=== PATIENT | female | born 1970 | race Caucasian/White ===

== ENCOUNTER → 2017-10-25 | Outpatient (CLI) | payer OTHER ==
[~2017-10-25] MED LIST: ACE3 PO; ASPI81TA94 PO; CEFU500T50 PO; CLIN-75 PO; CLIN300C99 PO; HYDR-4309 PO; IBU800 PO; LOR5 PO; MET2 PO; METF-410 PO; METO25TA23 PO; MULT-885 PO; NIFS30 PO; OLO2ODPT OU; OMEG-11 PO; OMEG500C5 PO; OXYC-865 PO; PER PO; PNEU0.5D3 IM; PRE10 PO; SUMA50TA34 PO; TOBR5DRO43 OD; WARF-1 PO; WARF-20 PO; WARF10TA28 PO
[2017-10-25 10:12] LABS: INR 2.75
== END ==
LOC: LAB 09:41
PROVIDERS: ATTEND Nurse Practitioner Family
DX: Z51.81 Encounter for therapeutic drug level monitoring (principal); Z79.01 Long term (current) use of anticoagulants; Z95.2 Presence of prosthetic heart valve
CPT/HCPCS: 36415; 85610

== ENCOUNTER → 2017-12-01 | Outpatient (CLI) | payer OTHER ==
[2017-12-01 14:25] LABS: INR 2.7
== END ==
LOC: LAB 14:06
PROVIDERS: ATTEND Nurse Practitioner Family
DX: Z51.81 Encounter for therapeutic drug level monitoring (principal); Z79.01 Long term (current) use of anticoagulants
CPT/HCPCS: 36415; 85610

== ENCOUNTER → 2018-01-10 | Outpatient (CLI) | payer OTHER ==
[2018-01-10 16:54] LABS: INR 2.73
== END ==
LOC: LAB 15:35
PROVIDERS: ATTEND Internal Medicine
DX: Z51.81 Encounter for therapeutic drug level monitoring (principal); Z79.01 Long term (current) use of anticoagulants; Z95.2 Presence of prosthetic heart valve
CPT/HCPCS: 36415; 85610

== ENCOUNTER 2018-01-13 15:06 | Emergency (ER) | payer OTHER ==
--- NOTE | 2018-01-13 15:14 | ER Report ---
History and Physical Time Seen By MD: 15:14 HPI/ROS CHIEF COMPLAINT: Chest pain HISTORY OF PRESENT ILLNESS: This is a 47-year-old female presents to the emergency department for left-sided chest pain. Patient states that over the last 2 weeks she's had intermittent left-sided chest pain, pinpoint around the 2nd and 3rd intercostal space. Patient denies recent trauma does state however that the pain does radiate up into her neck and left shoulder and across her back at times. Patient does state that a week ago they were shoveling some gravel and the pain seems to have increased since then. Patient states that today the pain on the left side of the chest seemed to intensify and had some increased pressure in her chest. She denies nausea, vomiting, diarrhea, aches, chills, headaches. Patient also has had an aortic valve replacement. Had a recent INR check which was 2.7. REVIEW OF SYSTEMS: Constitutional: No fever, no chills. Eyes: No discharge. ENT: No sore throat. Cardiovascular: As above. Respiratory: As above. Gastrointestinal: No abdominal pain, no vomiting. Genitourinary: No hematuria. Musculoskeletal: No back pain. Skin: No rashes. Neurological: No headache. Allergies: Coded Allergies: codeine (Verified Allergy, Intermediate, HIVES, 04/30/15) Can take Hydrocodone without a problem Uncoded Allergies: generic warfarin (Allergy, Unknown, 04/30/15) INR levels drop Home Meds Active Scripts Metoprolol Succinate (METOPROLOL SUCCINATE) 25 Mg Tab.er.24h, 12.5 MG PO DAILY, #45 TAB 2 Refills Prov:LASHAUN KRAUSE APRN-Amadou 08/07/17 Metformin Hcl (METFORMIN HCL) 500 Mg Tablet, 1 TAB PO BID, #180 TAB 1 Refill Prov:LASHAUN KRAUSE APRN-C 06/29/17 Warfarin Sodium (JANTOVEN) 5 Mg Tablet, 1-2 TAB PO DAILY, #102 TAB 3 Refills Take 1 tab daily except Mondays take 2 tabs Prov:LASHAUN KRAUSE APRN-C 06/29/17 Sumatriptan Succinate (IMITREX) 50 Mg Tablet, 1 TAB PO DAILY Y for HEADACHE, # 10 TAB 1 Refill If no effect after 2 hours may take a second tablet - do not exceed 2 tabs in 24 hours Prov:LAURENLASHAUN LEWIS FRANKLIN MOLD DESIGN ENGINEER-C 11/25/15 Pneumoc 13-Yane Conj-Dip Crm/Pf (PREVNAR 13 SYRINGE) 0.5 Ml Disp.syrin, 0.5 ML IM ONCE, #1 SYR 0 Refills Prov:LAURENDarellTIALASHAUN APRN MOLD DESIGN ENGINEER-C 04/30/15 Discontinued Reported Medications Multivitamin (DAILY VITAMIN) 1 Each Tablet, 1 EACH PO DAILY 03/21/13 [place]-3 Fatty Acids (FISH OIL) 500 Mg Capsule.dr, 500 MG PO 03/21/13 Discontinued Scripts Olopatadine (PATADAY) 0.05 Ml Soln, 1 GTT OU DAILY for 30 Days, #1 BOTTLE 5 Refills Prov:LAURENDarellTIALASHAUN APRNP-C 03/01/17 Past Medical/Surgical History Patient has a past medical surgical history of migraines, aortic valve replacement,, disease, wears glasses, borderline diabetic, cholecystectomy, tubal ligation. Reviewed Nurses Notes: Yes Hx Smoking: No Smoking Status: Former Smoker Exposure to Second Hand Smoke?: Yes Hx Substance Use Disorder: No Hx Alcohol Use: No Constitutional Vital Sign - Last 24 Hours 01/13/18 01/13/18 01/13/18 01/13/18 15:11 15:13 15:19 15:21 Pulse 80 80 Resp 16 31 B/P (MAP) 154/80 (104) 154/80 140/93 (109) Pulse Ox 96 96 O2 Delivery Room Air 01/13/18 01/13/18 01/13/18 01/13/18 15:36 15:51 16:03 16:06 Pulse 80 ??? 75 Resp 23 14 20 B/P (MAP) 128/91 (103) Pulse Ox 96 96 95 01/13/18 01/13/18 01/13/18 01/13/18 16:21 16:30 16:36 16:51 Pulse ? B/P (MAP) ???/??? (5033) 01/13/18 01/13/18 01/13/18 01/13/18 17:00 17:05 17:08 17:20 Pulse ??? 72 Resp 18 B/P (MAP) ???/??? (5785) 130/98 (109) Pulse Ox 95 01/13/18 01/13/18 01/13/18 01/13/18 17:30 17:35 17:50 18:01 Pulse 73 72 Resp 25 16 B/P (MAP) 134/94 (107) 137/92 (107) Pulse Ox 97 95 01/13/18 01/13/18 01/13/18 01/13/18 18:05 18:20 18:30 18:35 Pulse 67 69 ??? Resp 27 17 34 B/P (MAP) 125/96 (106) Pulse Ox 97 97 99 01/13/18 01/13/18 01/13/18 18:50 19:00 20:29 Pulse ??? 85 Resp 16 B/P (MAP) ???/??? (1665) 132/97 (109) Pulse Ox 92 O2 Delivery Room Air Physical Exam General Appearance: The patient is alert, has no immediate need for airway protection and no signs of toxicity. Eyes: Pupils equal and round no pallor or injection. ENT, Mouth: Mucous membranes are moist. Respiratory: There are no retractions, lungs are clear to auscultation. Cardiovascular: Regular rate and rhythm, systolic murmur, there is a mechanical click, no rubs. Gastrointestinal: Abdomen is soft and non tender, no masses, bowel sounds normal. Neurological: Alert and oriented 4. Moving all extremities. Following all commands. No focal neuro deficits. Skin: Warm and dry, no rashes. Musculoskeletal: Neck is supple non tender. Reproducible chest pain to the left anterior chest, around the 2nd and 3rd intercostal space with palpation, no crepitus or deformities noted. The muscles around the left shoulder and scapula are very tight. Extremities are nontender, nonswollen and have full range of motion. DIFFERENTIAL DIAGNOSIS: After history and physical exam differential diagnosis was considered for chest pain including but not limited to myocardial ischemia, pericarditis pulmonary embolus, chest wall pain, thoracic aneurysm, pleural inflammation and pulmonary infectious causes. Medical Decision Making Data Points Result Diagram: 01/13/18 1603 01/13/18 1541 Laboratory Hematology Test 01/13/18 15:41 01/13/18 16:00 01/13/18 16:03 01/13/18 19:29 Prothrombin Time 23.7 seconds (12.0-14.4) Prothromb Time International Ratio 2.05 Activated Partial Thromboplast Time 33 seconds (23-35) Sodium Level 140 mmol/L (137-145) Potassium Level 3.6 mmol/L (3.5-5.0) Chloride Level 105 mmol/L (98-107) Carbon Dioxide Level 20 mmol/L (22-31) Blood Urea Nitrogen 10 mg/dl (7-18) Creatinine 0.60 mg/dl (0.52-1.04) Glomerular Filtration Rate Calc > 60.0 Random Glucose 89 mg/dl (75-110) Calcium Level 9.0 mg/dl (8.4-10.2) Total Bilirubin 0.4 mg/dl (0.2-1.3) Aspartate Amino Transf (AST/SGOT) 19 U/L (0-35) Alanine Aminotransferase (ALT/SGPT) 27 U/L (0-56) Alkaline Phosphatase 79 U/L (0-126) Total Protein 7.0 gm/dl (6.3-8.2) Albumin 4.0 g/dl (3.5-5.0) D-Dimer Quantitative (PE/DVT) < 0.27 ug/ml (0-0.50) Red Blood Count 4.81 M/uL (4.17-5.56) Mean Corpuscular Volume 85.0 fL (80.0-96.0) Mean Corpuscular Hemoglobin 29.0 pg (26.0-33.0) Mean Corpuscular Hemoglobin Concent 34.2 g/dL (32.0-36.0) Red Cell Distribution Width 15.1 % (11.5-14.5) Mean Platelet Volume 9.2 fL (7.2-11.1) Neutrophils (%) (Auto) 62.3 % (39.4-72.5) Lymphocytes (%) (Auto) 31.4 % (17.6-49.6) Monocytes (%) (Auto) 4.1 % (4.1-12.4) Eosinophils (%) (Auto) 1.5 % (0.4-6.7) Basophils (%) (Auto) 0.7 % (0.3-1.4) Nucleated RBC Relative Count (auto) 0.0 /100WBC Neutrophils # (Auto) 7.0 K/uL (2.0-7.4) Lymphocytes # (Auto) 3.5 K/uL (1.3-3.6) Monocytes # (Auto) 0.5 K/uL (0.3-1.0) Eosinophils # (Auto) 0.2 K/uL (0.0-0.5) Basophils # (Auto) 0.1 K/uL (0.0-0.1) Nucleated RBC Absolute Count (auto) 0.00 K/uL Troponin I < 0.012 ng/ml Chemistry Test 01/13/18 15:41 01/13/18 16:00 01/13/18 16:03 01/13/18 19:29 Prothrombin Time 23.7 seconds (12.0-14.4) Prothromb Time International Ratio 2.05 Activated Partial Thromboplast Time 33 seconds (23-35) Glomerular Filtration Rate Calc > 60.0 Calcium Level 9.0 mg/dl (8.4-10.2) Total Bilirubin 0.4 mg/dl (0.2-1.3) Aspartate Amino Transf (AST/SGOT) 19 U/L (0-35) Alanine Aminotransferase (ALT/SGPT) 27 U/L (0-56) Alkaline Phosphatase 79 U/L (0-126) Total Protein 7.0 gm/dl (6.3-8.2) Albumin 4.0 g/dl (3.5-5.0) D-Dimer Quantitative (PE/DVT) < 0.27 ug/ml (0-0.50) White Blood Count 11.3 k/uL (4.5-11.0) Red Blood Count 4.81 M/uL (4.17-5.56) Hemoglobin 14.0 g/dL (12.0-16.0) Hematocrit 40.9 % (34.0-47.0) Mean Corpuscular Volume 85.0 fL (80.0-96.0) Mean Corpuscular Hemoglobin 29.0 pg (26.0-33.0) Mean Corpuscular Hemoglobin Concent 34.2 g/dL (32.0-36.0) Red Cell Distribution Width 15.1 % (11.5-14.5) Platelet Count 160 K/uL (150-450) Mean Platelet Volume 9.2 fL (7.2-11.1) Neutrophils (%) (Auto) 62.3 % (39.4-72.5) Lymphocytes (%) (Auto) 31.4 % (17.6-49.6) Monocytes (%) (Auto) 4.1 % (4.1-12.4) Eosinophils (%) (Auto) 1.5 % (0.4-6.7) Basophils (%) (Auto) 0.7 % (0.3-1.4) Nucleated RBC Relative Count (auto) 0.0 /100WBC Neutrophils # (Auto) 7.0 K/uL (2.0-7.4) Lymphocytes # (Auto) 3.5 K/uL (1.3-3.6) Monocytes # (Auto) 0.5 K/uL (0.3-1.0) Eosinophils # (Auto) 0.2 K/uL (0.0-0.5) Basophils # (Auto) 0.1 K/uL (0.0-0.1) Nucleated RBC Absolute Count (auto) 0.00 K/uL Troponin I < 0.012 ng/ml Coagulation Test 01/13/18 15:41 01/13/18 16:00 Prothrombin Time 23.7 seconds Prothromb Time International Ratio 2.05 Activated Partial Thromboplast Time 33 seconds D-Dimer Quantitative (PE/DVT) < 0.27 ug/ml EKG/Imaging EKG Interpretation 12 lead EKG: Time of EKG 1509. Rhythm: Sinus rhythm, ventricular rate 77 bpm. [place]: normal QRS: normal ST segments: No ST depression or elevation identified. 12 lead EKG: Repeat EKG time 1736. Rhythm: Sinus rhythm, 67 bpm. [place]: normal QRS: normal ST segments: No ST depression or elevation identified. [place] [facility] [place] Naida Oswald : 1970 Visit/Account:[id number] Date of Sevice: 01/13/2018 CHEST PA AND LAT HISTORY: Chest pain COMPARISON: None FINDINGS: Cardiomediastinal contours: Median sternotomy and aortic valve replacement. Lungs and pleura: Normal Bones/soft tissues: Normal Other findings: Right upper quadrant surgical clips. IMPRESSION: 1. No acute cardiopulmonary disease. Report Dictated By: Vincent Tierney MD at 01/13/2018 4:30 PM Report E-Signed By: Vincent Tierney MD at 01/13/2018 4:31 PM WSN:[id number] ED Course/Re-evaluation Clinical Indication for ER IV: IV Access ED Course The patient was admitted to room. A history of physical were obtained. Differential diagnoses were considered. An IV was started. A CBC, CMP, troponin , PT and INR, and d-dimer. Lab studies are unremarkable. Negative troponin INR subtherapeutic at 2.05 down from her previous which was 2.7. Patient tells me that she takes her dose in the evening and has not taken at the time of the lab draw. Negative d-dimer. Two-view chest x-ray was negative for any acute cardiopulmonary process. EKG showing normal sinus rhythm. I did review these lab results with the patient and her family my suggestion was to repeat the troponin. Patient was in agreement with this the 2nd troponin was negative. Patient was given 1 g of Tylenol with some relief of the left anterior chest pain. Patient was also given 30 mg IV Norflex which helped with some the muscular pain that she was having. The pain was reproducible on the left anterior chest and with the negative cardiac workup I felt comfortable seeing the patient home. I did discuss with the patient following up with her primary care provider Joaquin Branch for an echocardiogram. 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 The patient was in agreement with this plan of care and discharged home. Encouraged to return to the ED for any other concerns or worsening symptoms. Decision to Disposition Date: Jan 13, 2018 Decision to Disposition Time: 20:26 Depart Departure Latest Vital Signs Vital Signs Date Time Temp Pulse Resp B/P (MAP) Pulse Ox O2 Delivery O2 Flow Rate FiO2 01/13/18 20:29 85 16 132/97 (109 92 Room Air Impression: Primary Impression: Chest pain Condition: Improved Disposition: HOME OR SELF-CARE Referrals: LASHAUN KRAUSE APRNP-C (PCP) Patient Instructions: Chest Pain (ED) Additional Instructions: Drink plenty of fluids. Get plenty of rest. Consider talking with Lashaun Branch for a repeat Echo. Follow-up with your primary care provider within 7 days for reevaluation. Continue with current medications. Return to the emergency department for any other concerns or worsening symptoms. Problem Qualifiers Primary Impression: Chest pain Chest pain type: intercostal pain Qualified Codes: R07.82 - Intercostal pain NIVIA SPENCE-RYLAN Jan 13, 2018 15:14
[2018-01-13] MEDS ORDERED: ASPIRIN 81 MG CHEW PO ONE (15:30)
--- NOTE | 2018-01-13 15:44 | EKG ---
FACILITY: [facility] PATIENT NAME: RICHARD LOPEZ : [id number] MR: [id number] V: [id number] EXAM DATE: ORDERING PHYSICIAN: NIVIA SPENCE TECHNOLOGIST: MAYTE Tinajero Reason : CP Blood Pressure : / mmHG Vent. Rate : 077 BPM Atrial Rate : 077 BPM P-R Int : 152 ms QRS Dur : 076 ms QT Int : 396 ms P-R-T Axes : 048 041 038 degrees QTc Int : 448 ms Normal sinus rhythm Low voltage QRS No ST-T abnormalities When compared with ECG of 22-MAR-2013 06:15, Relatively unchanged Confirmed by FLAKITO MEEHAN ([id number]) on 01/14/2018 1:58:43 PM Referred By: Confirmed By:FLAKITO MEEHAN
[2018-01-13 15:57] LABS: INR 2.05
[2018-01-13 16:09] LABS: PLATELET COUNT, AUTOMATED 160 K/uL (150-450)
--- NOTE | 2018-01-13 16:35 | RADIOLOGY IMAGING REPORT ---
FACILITY: [facility] [place] PATIENT NAME: Naida Oswald : 1970 MR: [id number] V: [id number] EXAM DATE: ORDERING PHYSICIAN: NIVIA SPENCE TECHNOLOGIST: [place] [facility] [place]ida Oswald : 1970 Visit/Account:[id number] Date of Sevice: 01/13/2018 CHEST PA AND LAT HISTORY: Chest pain COMPARISON: None FINDINGS: Cardiomediastinal contours: Median sternotomy and aortic valve replacement. Lungs and pleura: Normal Bones/soft tissues: Normal Other findings: Right upper quadrant surgical clips. IMPRESSION: 1. No acute cardiopulmonary disease. Report Dictated By: Vincent Tierney MD at 01/13/2018 4:30 PM Report E-Signed By: Vincent Tierney MD at 01/13/2018 4:31 PM WSN:[id number]
[2018-01-13] MEDS ORDERED: ACETAMINOPHEN 500 MG TAB PO ONE (17:15)
--- NOTE | 2018-01-13 17:45 | EKG ---
FACILITY: [facility] - [place] PATIENT NAME: RICHARD LOPEZ : [id number] MR: [id number] V: [id number] EXAM DATE: ORDERING PHYSICIAN: NIVIA SPENCE TECHNOLOGIST: MAYTE Tinajero Reason : REPEAT Blood Pressure : / mmHG Vent. Rate : 067 BPM Atrial Rate : 067 BPM P-R Int : 132 ms QRS Dur : 074 ms QT Int : 418 ms P-R-T Axes : 040 032 026 degrees QTc Int : 441 ms Normal sinus rhythm No ST-T abnormalities When compared with ECG of 13-JAN-2018 15:09, No significant change was found Confirmed by FLAKITO MEEHAN ([id number]) on 01/14/2018 2:05:07 PM Referred By: Confirmed By:FLAKITO MEEHAN
[2018-01-13] MEDS ORDERED: ORPHENADRINE 60MG/2ML INJ IVP ONE (19:35)
[2018-01-13 20:29] VITALS: BP 132/97
== END 2018-01-13 20:40 | disposition home or self-care (01) ==
LOC: ER 15:10
DX: R07.82 Intercostal pain (principal)
CPT/HCPCS: 36415; 71046; 84484; 85025; 85379; 85610; 85730; 93005; 96374; 99284; J2360; 82040; 82247; 82310; 82374; 82435; 82565; 82947; 84075; 84132; 84155; 84295; 84450; 84460; 84520

== ENCOUNTER → 2018-01-22 | Outpatient (CLI) | payer OTHER ==
[~2018-01-22] MED LIST changes: +METR45CR10 TP
--- NOTE | 2018-01-23 21:22 | RADIOLOGY IMAGING REPORT ---
FACILITY: [facility] [place] PATIENT NAME: RICHARD LOPEZ : [id number] MR: [id number] V: [id number] EXAM DATE: [id number] ORDERING PHYSICIAN: LASHAUN KRAUSE TECHNOLOGIST: Kike Dodson EXAMINATION:TWO-DIMENSIONAL ECHOCARDIOGRAPH REASON:AORTIC VALVE REPLACEMENT 2D Measurements (normal values in centimeters) LV endLV endRV endVent.LV PostAorticLeftPercent DiastolicSystolicDiastolicSeptumWallRootAtriumShortening (3.5-5.7)(0.9-2.6)(0.6-1.1)(0.6-1.1)(2.0-3.7)(1.9-4.0)(25-35%) [id number]% STROKE VOLUME: 43ml ESTIMATED EJECTION FRACTION:70% PARASTERNAL LONG AXIS: Overall left ventricular systolic function appears to be normal. Right ventricle also appears to contract normally & the TAPSE was measured at 2.5. Chamber sizes also appear to be normal. No wall motion abnormalities are noted. The aortic valve is a mechanical aortic valve & appears to open fairly normally. Color examination of the valves reveals a trace of mitral insufficiency & a trace of tricuspid insufficiency. Aortic valve may show a trace of aortic insufficiency present. PARASTERNAL SHORT AXIS: Again overall left ventricular systolic function appears to be normal & chamber sizes are normal. Aortic valve is a mechanical valve. Color examination reveals a trace of aortic insufficiency. Color examination of the tricuspid valve reveals a mild amount of tricuspid insufficiency. Color examination of the pulmonic valve reveals a trace of pulmonic insufficiency. APICAL FOUR AND TWO CHAMBER: Normal left ventricular ejection fraction. Left atrial & right atrial volumes are measured within normal ranges at 15 & 24ml/m2. The aortic valve area is measured at 1.8cm2 with the mean pressure gradient across the valve of 16mm Hg & a dimensionless index of 0.7. The mitral valve area was measured within normal ranges at 3.4cm2. The tricuspid regurgitation Vmax measured 2.55m/sec. Mild to moderate amount of tricuspid insufficiency is noted. SUBCOSTAL VIEW: No pericardial effusion was noted. No atrioseptal or ventriculoseptal defects were appreciated. Doppler examination of the mitral valve in diastole does reveal the normal pattern but there is some reversal with Valsalva suggesting decreased diastolic function. The E to E prime ratio is 17 for medial & 16 for lateral. OVERALL IMPRESSION: 1. Normal left ventricular ejection fraction of approximately 70% with a Grade 1/4 decrease in diastolic function. 2. Normal chamber sizes. No left ventricular thickening is noted. 3. A mechanical aortic valve with a valve area of 1.8cm2 with a mean pressure gradient across the valve of 16mm Hg & a dimensionless index of 0.7 indicating mild aortic stenosis. There is a trace of aortic insufficiency present. 4. A trace of mitral insufficiency with no mitral stenosis. 5. A mild amount of tricuspid insufficiency with estimated right ventricular systolic pressure within normal ranges at 29mm Hg which does include an estimated right atrial pressure of 3mm Hg. 6. There is a trace of pulmonic insufficiency. 7. In comparison with the examination done on 07/11/16 no change was noted. Dictated by: Nieves Sandhu M.D. on 01/22/2018 at 15:02 Transcribed by: ABDI on 01/23/2018 at 10:15 Approved by: Nieves Sandhu M.D. on 01/23/2018 at 21:21 [facility]
== END ==
LOC: US 01:15
PROVIDERS: ATTEND Nurse Practitioner Family
DX: I50.30 Unspecified diastolic (congestive) heart failure (principal); I35.2 Nonrheumatic aortic (valve) stenosis with insufficiency; I34.0 Nonrheumatic mitral (valve) insufficiency; I07.1 Rheumatic tricuspid insufficiency; I37.1 Nonrheumatic pulmonary valve insufficiency
CPT/HCPCS: 93306

== ENCOUNTER → 2018-02-09 | Outpatient (CLI) | payer OTHER ==
[2018-02-09 11:28] LABS: INR 1.75
== END ==
LOC: LAB 11:08
PROVIDERS: ATTEND Nurse Practitioner Family
DX: R73.01 Impaired fasting glucose (principal); Z79.01 Long term (current) use of anticoagulants
CPT/HCPCS: 36415; 83036; 85610

== ENCOUNTER → 2018-02-16 | Outpatient (CLI) | payer OTHER ==
[2018-02-16 10:26] LABS: INR 2.31
== END ==
LOC: LAB 09:58
PROVIDERS: ATTEND Nurse Practitioner Family
DX: Z51.81 Encounter for therapeutic drug level monitoring (principal); Z79.01 Long term (current) use of anticoagulants
CPT/HCPCS: 36415; 85610

== ENCOUNTER → 2018-03-27 | Outpatient (CLI) | payer OTHER ==
[~2018-03-27] MED LIST changes: -METF-410 PO; +METF-411 PO
[2018-03-27 16:04] LABS: INR 2.39
== END ==
LOC: LAB 15:27
PROVIDERS: ATTEND Nurse Practitioner Family
DX: Z51.81 Encounter for therapeutic drug level monitoring (principal); Z79.01 Long term (current) use of anticoagulants; Z95.0 Presence of cardiac pacemaker
CPT/HCPCS: 36415; 85610

== ENCOUNTER → 2018-05-01 | Outpatient (CLI) | payer OTHER ==
[2018-05-01 14:11] LABS: INR 2.27
== END ==
LOC: LAB 13:44
PROVIDERS: ATTEND Nurse Practitioner Family
DX: Z51.81 Encounter for therapeutic drug level monitoring (principal); Z79.01 Long term (current) use of anticoagulants
CPT/HCPCS: 36415; 85610

== ENCOUNTER → 2018-06-12 | Outpatient (CLI) | payer OTHER ==
[2018-06-12 09:31] LABS: INR 2.67
== END ==
LOC: LAB 08:42
PROVIDERS: ATTEND Nurse Practitioner Family
DX: Z79.01 Long term (current) use of anticoagulants (principal)
CPT/HCPCS: 36415; 85610

== ENCOUNTER → 2018-07-13 | Outpatient (CLI) | payer OTHER ==
[~2018-07-13] MED LIST changes: -METF-411 PO; +METF-450 PO
[2018-07-13 11:17] LABS: INR 2.38
== END ==
LOC: LAB 08:57
PROVIDERS: ATTEND Nurse Practitioner Family
DX: Z79.01 Long term (current) use of anticoagulants (principal)
CPT/HCPCS: 36415; 85610

== ENCOUNTER → 2018-08-20 | Outpatient (CLI) | payer OTHER ==
[~2018-08-20] MED LIST changes: -HYDR-4309 PO; +HYDR-653 PO
[2018-08-20 10:54] LABS: INR 1.53
== END ==
LOC: LAB 09:21
PROVIDERS: ATTEND Nurse Practitioner Family
DX: Z79.01 Long term (current) use of anticoagulants (principal)
CPT/HCPCS: 36415; 85610

== ENCOUNTER → 2018-08-30 | Outpatient (CLI) | payer OTHER ==
[~2018-08-30] MED LIST changes: +TRIA15OI20 TP
[2018-08-30 10:45] LABS: INR 1.9
== END ==
LOC: LAB 10:21
PROVIDERS: ATTEND Nurse Practitioner Family
DX: Z51.81 Encounter for therapeutic drug level monitoring (principal); Z79.01 Long term (current) use of anticoagulants
CPT/HCPCS: 36415; 85610

== ENCOUNTER → 2018-09-05 | Outpatient (CLI) | payer OTHER ==
[2018-09-05 10:31] LABS: INR 2.36
== END ==
LOC: LAB 10:07
PROVIDERS: ATTEND Nurse Practitioner Family
DX: Z79.01 Long term (current) use of anticoagulants (principal)
CPT/HCPCS: 36415; 85610

== ENCOUNTER → 2018-09-14 | Outpatient (CLI) | payer OTHER ==
[2018-09-14 09:13] LABS: INR 1.67
== END ==
LOC: LAB 08:52
PROVIDERS: ATTEND Nurse Practitioner Family
DX: Z79.01 Long term (current) use of anticoagulants (principal)
CPT/HCPCS: 36415; 85610

== ENCOUNTER → 2018-09-20 | Outpatient (CLI) | payer OTHER ==
[2018-09-20 09:26] LABS: INR 1.97
== END ==
LOC: LAB 08:50
PROVIDERS: ATTEND Nurse Practitioner Family
DX: Z79.01 Long term (current) use of anticoagulants (principal)
CPT/HCPCS: 36415; 85610

== ENCOUNTER → 2018-09-28 | Outpatient (CLI) | payer OTHER ==
[2018-09-28 10:20] LABS: INR 2.06
== END ==
LOC: LAB 09:56
PROVIDERS: ATTEND Nurse Practitioner Family
DX: Z79.01 Long term (current) use of anticoagulants (principal)
CPT/HCPCS: 36415; 85610

== ENCOUNTER → 2018-10-05 | Outpatient (CLI) | payer OTHER ==
[2018-10-05 09:44] LABS: INR 2.04
== END ==
LOC: LAB 09:13
PROVIDERS: ATTEND Nurse Practitioner Family
DX: Z79.01 Long term (current) use of anticoagulants (principal)
CPT/HCPCS: 36415; 85610

== ENCOUNTER → 2018-10-19 | Outpatient (CLI) | payer OTHER ==
[2018-10-19 10:50] LABS: INR 2.93
== END ==
LOC: LAB 09:41
PROVIDERS: ATTEND Nurse Practitioner Family
DX: Z79.01 Long term (current) use of anticoagulants (principal)
CPT/HCPCS: 36415; 85610

== ENCOUNTER → 2018-10-26 | Outpatient (CLI) | payer OTHER ==
[2018-10-26 10:44] LABS: INR 2.4
== END ==
LOC: LAB 10:21
PROVIDERS: ATTEND Nurse Practitioner Family
DX: Z79.01 Long term (current) use of anticoagulants (principal)
CPT/HCPCS: 36415; 85610

== ENCOUNTER → 2018-11-26 | Outpatient (CLI) | payer OTHER ==
[2018-11-26 10:05] LABS: INR 3.18
== END ==
LOC: LAB 09:37
PROVIDERS: ATTEND Nurse Practitioner Family
DX: Z51.81 Encounter for therapeutic drug level monitoring (principal); Z79.01 Long term (current) use of anticoagulants
CPT/HCPCS: 36415; 85610

== ENCOUNTER → 2019-01-07 | Outpatient (CLI) | payer OTHER ==
[2019-01-07 14:05] LABS: INR 2.77
== END ==
LOC: LAB 13:28
PROVIDERS: ATTEND Nurse Practitioner Family
DX: R73.01 Impaired fasting glucose (principal); Z79.01 Long term (current) use of anticoagulants
CPT/HCPCS: 36415; 83036; 85610

== ENCOUNTER → 2019-02-08 | Outpatient (REF) ==
[2019-02-08 10:33] LABS: LDL CHOLESTEROL 132 mg/dl
== END ==
DX: Z02.9 Encounter for administrative examinations, unspecified (principal)

== ENCOUNTER → 2019-02-08 | Outpatient (CLI) | payer OTHER ==
[2019-02-08 09:24] LABS: INR 3.65
== END ==
LOC: LAB 08:19
PROVIDERS: ATTEND Nurse Practitioner Family
DX: Z51.81 Encounter for therapeutic drug level monitoring (principal); Z79.01 Long term (current) use of anticoagulants
CPT/HCPCS: 36415; 85610

== ENCOUNTER → 2019-02-15 | Outpatient (CLI) | payer OTHER ==
[2019-02-15 09:31] LABS: INR 2.7
== END ==
LOC: LAB 09:09
PROVIDERS: ATTEND Nurse Practitioner Family
DX: Z51.81 Encounter for therapeutic drug level monitoring (principal); Z79.01 Long term (current) use of anticoagulants
CPT/HCPCS: 36415; 85610

== ENCOUNTER → 2019-03-04 | Outpatient (CLI) | payer OTHER ==
[2019-03-04 10:10] LABS: INR 3.51
== END ==
LOC: LAB 09:09
PROVIDERS: ATTEND Nurse Practitioner Family
DX: Z79.01 Long term (current) use of anticoagulants (principal)
CPT/HCPCS: 36415; 85610

== ENCOUNTER 2019-03-14 11:33 | Outpatient (RCR) | payer OTHER ==
[~2019-03-14] VITALS: Ht 158.8 cm; Wt 93.0 kg
--- NOTE | 2019-03-14 14:56 | Medical Nutrition Therapy ---
Nutrition Anthropometrics Height (Inches): 62.5 Weight (Pounds): 208 (standing scale in clinic) BMI: 37.5 Marcelino Nutrition Score: Marcelino Nutrition Risk Score: Dietary Referral Nutrition Risk Factors: Nutrition Risk Comment: Nutrition/Food History Breakfast: egg,miranda or [facility] cafeteria cinnamon roll, 12 oz OJ Lunch: sand and lg indonesian fries Dinner: 1c roopa &rice, 2-12" tortilla enchilada Snacks: fruit Nutritional Education Nutrition Education Topic: Weight Loss Diet (prediabetes) Learning Readiness: Interested Teaching Methods: Discussion, Handout, Demonstration Response to Teaching: Verbalize understanding, Reinforcement needed Teaching Recipient: Patient Nutrition Counseling: Pt with dx prediabetes and family hx of diabetes. Pt interested in wt loss. Pt states follows diet 2 week then gets bored and quits. Discussed what is prediabetes and goals of lifetyle changes with exercise and wt loss. Discussed various diets. Pt had tried 31 day fix which focuses on poriton contol. Reivwed meal exchange, plate method, kcal counting. Recommend pt try plate method and focus on increaseing veggies and limiting CHO foods to 1c/meal. Encouraged pt to consider this as trying to modify lifestyle rather than "diet". Reviewed current diet that is high CHO foods. Pt eat most breakfast and lunch meals in [facility] cafeteria chooseing high CHO, high fat foods. Pt and RD brainstormed breakfast idea that she could bring or lower kcal foods from cafeteia. Recommended as first step to try sandwich and salad in cafeteria rather than indonesian fries. Pt will f/u in 2 wks. Nutrition Monitoring & Eval RD Patient Assessment Time: 60 minutes Nutritional Comment: provided 70 minutes MNT for prediabetes dx for pt with BMI 37.5 Copies To Copies to: LASHAUN KRAUSE APRN IT APPLICATIONS ANALYST-C ; SHORTY MCCRACKEN March 14, 2019 14:56
--- NOTE | 2019-03-28 13:17 | Medical Nutrition Therapy ---
Nutrition Anthropometrics Height (Inches): 62.5 Weight (Pounds): 208 (standing scale in clinic) BMI: 37.5 Marcelino Nutrition Score: Marcelino Nutrition Risk Score: Dietary Referral Nutrition Risk Factors: Nutrition Risk Comment: Nutrition/Food History Breakfast: omlet, Lunch: cream soup, crackers Dinner: 2 enchilada, cheese, beans Snacks: vegges and hummus Nutritional Education Nutrition Education Topic: Diabetic Nutrition (prediabetes with wt loss goal) Learning Readiness: Interested Teaching Methods: Discussion, Handout Response to Teaching: Verbalize understanding Teaching Recipient: Patient Nutrition Counseling: Pt states cont to try plate method. Pt has made changes in eatting habit of not drinking pop and haveing veggies and hummus for snacks. Pt is using portion control cups. According to 214 hr recall, non- starchy veggies at meals are limited. Pt and RD made out 1 week dinner menu using her typical meals and showing how to increase veg and limit starchy foods. Reviewed [facility] menu and highlighted lower kcal options. Pt will f/u in 2 weeks to review stress eating /emotional eating. Wt stable from last session. Nutrition Monitoring & Eval RD Patient Assessment Time: [address] Assessment Type: RD Education Nutritional Comment: provided 60 minutes MNT for prediabetes dx for pt with BMI 37.5 Copies To Copies to: LASHAUN KRAUSE APRNP-C ; SHORTY MCCRACKEN Mar 28, 2019 13:17
[2019-04-09] MEDS ORDERED: METF-450 PO (08:33)
--- NOTE | 2019-04-11 13:19 | Medical Nutrition Therapy ---
Nutrition Anthropometrics Height (Inches): 62.5 Weight (Pounds): 205 (standing scale in clinic) BMI: 37.5 Marcelino Nutrition Score: Marcelino Nutrition Risk Score: Dietary Referral Nutrition Risk Factors: Nutrition Risk Comment: Nutrition Monitoring & Eval Nutritional Comment: weigh-in only < 15 minutes. Wt down 3#. Copies To Copies to: LASHAUN KRAUSE APRNP-Amadou ; SHORTY MCCRACKEN Apr 11, 2019 13:19
== END 2019-04-18 ==
LOC: DIET 11:33
PROVIDERS: ATTEND Nurse Practitioner Family
DX: R73.01 Impaired fasting glucose (principal); E78.5 Hyperlipidemia, unspecified; E66.9 Obesity, unspecified

== ENCOUNTER 2019-03-20 16:15 | Outpatient (RCR) | payer OTHER ==
--- NOTE | 2019-03-08 21:18 | PT INITIAL EVALUATION ---
MEDICAL DIAGNOSIS: Left lateral ankle pain TREATMENT DIAGNOSIS: Left inversion ankle sprain, cuboid syndrome DATE OF ONSET: 03/08/19 SUBJECTIVE: Naida is a 48 year old female presenting to physical therapy following gradual onset of L lateral foot and ankle pain over the last 3 MO. 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 Pt reports no MAEVE when pain started but that it came on gradually. Pain is increased with going up and down stairs and can wake pt up at night sometimes. 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 Posture: Pt shows B inversion foot posture at rest ROM: Ankle ROM (L,R): DF: 9 degrees, 9, PF: 28, 50, Inversion: 42 with pain, 48, Eversion: 16, 23. Strength: Ankle MMT (L,R): DF: B 5/5, PF: 4-/5 with pain, 5/5, Inversion: 5/5 B, Eversion: 4-/5 with pain, 5/5. Palpation: Pt is ttp along the inferior side of the cuboid with bone level with 5th met head with poor mobility. Pt is ttp along the anterior talofibular ligament. Special Tests: anterior/posterior talus drawer (-) ASSESSMENT: Naida shows signs and symptoms consistent with L lateral inversion sprain with grade 1 sprain of the L anterior talofibular ligament,peroneals as well as L cuboid syndrome. Physical therapy is indicated to address the above listed deficits to improve pt function with ADL's and occupational activities. Short Term Goals In 2 weeks pt will improve L ankle ROM to equal to that of the R LE for improved function with ADL's. In 4 weeks pt will improve L foot strength to 4+/5 or greater without pain for improved function with ADL's. In 4 weeks pt will be able to go up an down stairs and tolerate a full work day without pain for occupational function as well as with ADL's. Patient's Goals Decrease foot and ankle pain PLAN: Patient to be seen for Manual Therapy/STM/MET Strengthening/condition Ice/Heat Range of Motion Stretching Iontophoresis Neuromuscular Re-ed Closed Chain Program Electrical Stim Posture/Body mechanics Gait Trg/Balance Trg Home Exercise Program [facility]./Manual Traction Therapeutic Activities 2x/Week for 4 Weeks If you have any questions, comments, or concerns about this report or plan, please contact me at . Thank you, Liza Arboleda, PT, DPT, CLT MTDD
--- NOTE | 2019-03-21 07:12 | PT PLAN OF CARE ---
Physician: Martha Ayala, BUSINESS CENTER ATTENDANT, CAD CAM PROGRAMMER-C Patient is being seen: 2x./Week Therapist: Liza Arboleda, PT, DPT, CLT Medical Diagnosis: Left lateral ankle pain Treatment Diagnosis: Left inversion ankle sprain, cuboid syndrome Date of Onset: 03/08/19 Date of Initial Evaluation: 03/07/19 Date patient was last seen: 03/20/19 Number of treatments: 4 Number of cancellations/No shows: 0 INTERVENTIONS: Manual Therapy/STM/MET Strengthening/condition Ice/Heat Range of Motion Stretching Iontophoresis Neuromuscular Re-ed Closed Chain Program Electrical Stim Posture/Body mechanics Gait Trg/Balance Trg Home Exercise Program Mech./Manual Traction Therapeutic Activities GOALS: In 2 weeks pt will improve L ankle ROM to equal to that of the R LE for improved function with ADL's.MET In 4 weeks pt will improve L foot strength to 4+/5 or greater without pain for improved function with ADL's. MET In 4 weeks pt will be able to go up an down stairs and tolerate a full work day without pain for occupational function as well as with ADL's. MET PATIENT'S GOAL: Decrease foot and ankle pain Status of Patient's Goals: 3/3 MET Patient Compliance: Good Prognosis: Good Reasons for continuing therapy: Naida is to discharge from physical therapy at this [facility] secondary to completion of 3/3 functional goals. At the time of discharge pt reported no pain with ADL's, occupational activities or daily ambulation up and down stairs. Pt shows improved strength of the ankle with improved mobility as well. Pt is to continue with [facility] upon discharge to maintain foot positioning for the next month and is to seek further PT if symptoms return. ROM: Ankle ROM (L,R): DF: 10, 9, PF: 52, 50, Inversion: 47, 48, Eversion: 24, 23. Strength: Ankle MMT (L,R): DF: B 5/5, PF: 5/5 5/5, Inversion: 5/5 B, Eversion: 4+/5 with pain, 5/5. If you have any questions, please feel free to contact me at [phone]. Thank you, Liza Arboleda, PT, DPT, CLT [facility]
== END 2019-03-20 18:00 | disposition home or self-care (01) ==
LOC: PT 16:15
PROVIDERS: ATTEND Nurse Practitioner Family
DX: S93.402A Sprain of unspecified ligament of left ankle, initial encounter (principal); M25.572 Pain in left ankle and joints of left foot
CPT/HCPCS: 97161

== ENCOUNTER → 2019-03-22 | Outpatient (CLI) | payer OTHER ==
[2019-03-22 10:05] LABS: INR 2.76
== END ==
LOC: LAB 09:43
PROVIDERS: ATTEND Nurse Practitioner Family
DX: Z51.81 Encounter for therapeutic drug level monitoring (principal); Z79.01 Long term (current) use of anticoagulants
CPT/HCPCS: 85610

== ENCOUNTER → 2019-04-05 | Outpatient (CLI) | payer OTHER ==
[2019-04-05 11:46] LABS: INR 1.85
== END ==
LOC: LAB 11:24
PROVIDERS: ATTEND Nurse Practitioner Family
DX: Z51.81 Encounter for therapeutic drug level monitoring (principal); Z79.01 Long term (current) use of anticoagulants
CPT/HCPCS: 36415; 85610

== ENCOUNTER → 2019-04-12 | Outpatient (CLI) | payer OTHER ==
[2019-04-12 13:21] LABS: INR 2.12
== END ==
LOC: LAB 10:33
PROVIDERS: ATTEND Nurse Practitioner Family
DX: Z51.81 Encounter for therapeutic drug level monitoring (principal); Z79.01 Long term (current) use of anticoagulants
CPT/HCPCS: 36415; 85610

== ENCOUNTER → 2019-04-22 | Outpatient (CLI) | payer OTHER ==
[2019-04-22 12:08] LABS: INR 2.08
== END ==
LOC: LAB 11:28
PROVIDERS: ATTEND Nurse Practitioner Family
DX: Z79.01 Long term (current) use of anticoagulants (principal)
CPT/HCPCS: 36415; 85610

== ENCOUNTER → 2019-05-23 | Outpatient (CLI) | payer OTHER ==
[2019-05-23 11:34] LABS: INR 2.59
== END ==
LOC: LAB 08:24
PROVIDERS: ATTEND Nurse Practitioner Family
DX: Z95.2 Presence of prosthetic heart valve (principal)
CPT/HCPCS: 36415; 85610